=== PATIENT | male | born 1955 | race African-American/Black ===

== ENCOUNTER 2017-12-11 09:05 | Observation (INO) | payer OTHER ==
[2017-12-11] MEDS ORDERED: Ondansetron ODT 4 MG TAB SL PRN (11:30)
[2017-12-11] MEDS ORDERED: Ondansetron HCl/PF 4 MG/2 ML Vial IVP PRN (11:30)
[2017-12-11 11:44] VITALS: BMI 34.9
[2017-12-11] MEDS ORDERED: Acetaminophen 325 MG TAB PO PRN (12:32)
[2017-12-11] MEDS ORDERED: Zolpidem Tartrate 5 MG TAB PO PRN (12:32)
[2017-12-11] MEDS ORDERED: Ondansetron ODT 4 MG TAB PO PRN (12:32)
--- NOTE | 2017-12-11 13:05 | HP ---
[facility] call admission for [facility]. The patient is from [place]. Referred to the [facility] Hospitalist Cordelia carolina by [facility] for stroke. HISTORY OF PRESENT ILLNESS: Patient describes spinning and balance problems since 3:00 a.m., stated he had some double vision with it. No headache. No trouble talking. No trouble swallowing. No pro blem with arms or legs. PAST MEDICAL HISTORY: Coronary artery disease, hypertension, elevated cholesterol, anxiety. CURRENT MEDICATIONS: Prozac 10 mg a day, amlodipine 10 mg a day, fenofibric acid 135 mg a day, metop rolol 12.5 mg twice a day, KCl 10 mEq a day, Lasix 20 mg a day, lisinopril 40 mg a day. ALLERGIES TO MEDICINES: None. PAST SURGICAL HISTORY: ORIF of left femur with a james from his hip to his knee, coronary artery bypas s graft 3 years ago. FAMILY HISTORY: Father of an PA. Mother has coronary artery disease and hypertension. He has had one sibling that had a stroke. SOCIAL HISTORY: , smokes 1 pack a day. No alcohol of note. CODE STATUS: FULL CODE STATUS. No next of kin designated at this time. REVIEW OF SYSTEMS: General: No fever, chills or sweats. Eyes: He states he has had double vision. ENT: No ear pain or drainage. No nasal bleeding. No trouble swallowing. Cardiac: No chest pain, orthopnea or paroxysmal nocturnal dyspnea. Respirations: Dry cough, chroni c. No asthma or wheezing. Gastrointestinal: No nausea, vomiting, diarrhea, constipation or abdomin al pain. Genitourinary: No hematuria, dysuria. Musculoskeletal: Occasional swelling in his legs. No pain in his muscles or joints. Neurological: No history of strokes. Psychiatric: He has anxiety problems. Skin: No bruises, bleeding or rash. Heme/Lymph: No tender or swollen lymph nodes in axilla, inguinal or cervical area. PHYSICAL EXAMINATION: GENERAL: He is alert, oriented, cooperative gentleman in no acute distress. It is pertinent that du ring the neurological exam, he just spontaneously started crying and covered his eyes. VITAL SIGNS: Blood pressure 154/85, O2 sat 94, respirations 18, pulse was 50-56, temperature 97.4. HEENT: Reveal pupils equal, round, and reactive. His right eye would not cross the midline, moving to the left. His left eye had full range of motion. It is interesting to note that on far lateral v ision with the disconjugate motion, he did not have double vision counting fingers. Sclerae white. Tympanic membranes clear. Nose clear. Oral mucous membranes are wet. Dental hygiene is good. NECK: Supple, without jugular venous distention, adenopathy or thyromegaly. CHEST: Clear to auscultation and percussion. HEART: Had a regular rate and rhythm. First and second heart sounds are clear. There are no apprec iated murmurs or gallops. ABDOMEN: Soft, bowel sounds are normal. There is no hepatosplenomegaly, no mass, no rebound examine . EXTREMITIES: Examination of his extremities reveal no cyanosis, clubbing or edema. PULSES: Carotid, radial, and femoral pulses intact. Pedal pulses diminished diffusely. SKIN: Warm and dry without bruises or rash. HEME/LYMPH: No tender or swollen lymph nodes in axilla, inguinal or cervical area. No petechial hem orrhages. NEUROLOGICAL: Examination of his cranial nerves were normal except for an apparent paralysis of the medial rectus on the right. Deep tendon reflexes were symmetric. Strength was symmetric. Finger-no se-finger was symmetric. IMAGING: EKG, sinus bradycardia, otherwise normal, reviewed by me. Studies done in [place] [facility], brain CT, no acute intracranial abnormality noted. CT [place] [facility] [place] with contrast revealed no hi gh-grade stenosis. LABORATORY DATA: CBC is normal. Basic metabolic profile is normal except for a glucose of 119. Car diac enzymes are normal. Urine is clear. Urine drug screen is clear. ADMITTING DIAGNOSES: 1. Dizziness consistent with vertigo, no nystagmus on my exam. 2. Paralysis of right medial rectus. 3. Coronary artery disease, post coronary artery bypass graft. 4. Hypertension. 5. Dyslipidemia. 6. Anxiety. PLAN: Continue aspirin. We will start statin. MRI, carotid ultrasound, then reevaluate.
--- NOTE | 2017-12-11 14:10 | ULT ---
BILATERAL CAROTID DUPLEX ULTRASOUND: HISTORY: Dizziness. TECHNIQUE: Roldan scale, color flow, and spectral Doppler imaging of the external carotid artery systems is perfor med bilaterally. FINDINGS: No significant plaque formation or intimal wall thickening is seen. The peak systolic velocity in the right ICA measures 56 cm/s with an end-diastolic velocity of 11 cm/ s and a systolic pressure of 0.48. The peak systolic velocity in the left ICA measures 84 cm/s with an end-diastolic velocity of 9 cm/s and a systolic ratio of 0.76. Flow in both arteries remains antegrade. IMPRESSION: No evidence of hemodynamically significant stenosis. POS: [facility]
[2017-12-11 15:27] VITALS: BP 154/83; TEMP 97.5
--- NOTE | 2017-12-11 17:30 | MRI ---
MRI OF BRAIN WITHOUT CONTRAST: 12/11/17 HISTORY: Double vision, dizziness, altered mental status. Right eye strabismus. FINDINGS: No restricted diffusion is seen. There are foci of T2 prolongation in the periventricular white matte r consistent with chronic small vessel ischemic disease. There is gliosis in the left temporal lobe. No evidence of acute infarct, hemorrhage, midline shift, or abnormal extra-axial fluid collections ar e seen. No evidence of acute infarct, hemorrhage, midline shift, or abnormal extra-axial fluid collec tions seen. The ventricular size is appropriate and the basilar cisterns patent. There is mucosal dis ease in the paranasal sinuses. IMPRESSION: No evidence of acute intracranial process. POS: [facility]
--- NOTE | 2017-12-11 18:38 | DIS ---
DATE OF ADMISSION: 12/11/2017. DATE OF DISCHARGE: 12/11/2017. TRANSFER OF CARE PRIMARY CARE PROVIDER: Out of town in [place]. DISCHARGE DISPOSITION: Home. FINAL DIAGNOSES: Dizziness, most compatible with vertigo; history of coronary artery disease; hypert ension and dyslipidemia. DISCHARGE MEDICATIONS: The same as his home medicines, metoprolol 12.5 mg daily, lisinopril 40 mg da emely, aspirin 81 mg, Lasix 20 mg daily, amlodipine 10 mg daily, KCl 10 mEq daily, fenofibric acid 135 mg daily, fluoxetine 10 mg a day plus meclizine 12.5 mg p.o. q.6 hours p.r.n. dizziness. ALLERGIES: None. PENDING AT THE TIME OF DISCHARGE: Nothing. CODE STATUS: Full. HOSPITAL COURSE: The patient admitted from [place] with vertigo sensation, question of double v ision. CT scan was unremarkable. Brain MRI showed no evidence of acute process. Carotid Doppler sh owed no stenosis. Situation was discussed with the patient. His symptoms have resolved. He is madonna zuleyma of being discharged on medicines for dizziness plus his home medicines. He has been asked to se e his PCP for followup in 1 week. His other laboratory was done in [place]. CBC was normal. B asic metabolic profile was normal. Urine was clear. Toxicology was negative. At the time of discha rge, blood pressure 154/83, pulse 55, respirations 16, pulse ox 94, feels well. Cardiorespiratory ex am is normal. Neurological exam shows the same fixed defect of his right medial rectus ophthalmic mu scle as before. It is fascinating to note that as before he notes no double vision with his left vis ion despite the fact that his eyes were not tracking together, which indicates this is an old compens ated problem.
[2017-12-12] MEDS ORDERED: FLUoxetine HCl 10 MG CAP PO SCH (09:00)
[2017-12-12] MEDS ORDERED: Fenofibrate Nanocrystallized 145 MG TAB PO SCH (09:00)
[2017-12-12] MEDS ORDERED: Lisinopril 20 MG TAB PO SCH (09:00)
[2017-12-12] MEDS ORDERED: Metoprolol Tartrate 25 MG TAB PO SCH (09:00)
[2017-12-12] MEDS ORDERED: Aspirin 325 mg Enteric Coated Tablet PO SCH (09:00)
[2017-12-12] MEDS ORDERED: Amlodipine 10 MG TAB PO SCH (09:00)
[2017-12-12] MEDS ORDERED: Furosemide 20 MG TAB PO SCH (09:00)
[2017-12-12] MEDS ORDERED: Potassium Chloride 10 MEQ TAB PO SCH (09:00)
== END 2017-12-11 18:32 | disposition home or self-care (01) ==
LOC: ERS 09:05 → INTOOBSV 10:00 → 2SE 10:00
PROVIDERS: ADMIT Internal Medicine; ATTEND Internal Medicine
DX: R42 Dizziness and giddiness (principal); H53.2 Diplopia; I25.10 Atherosclerotic heart disease of native coronary artery without angina pectoris; I10 Essential (primary) hypertension; E78.00 Pure hypercholesterolemia, unspecified; F17.210 Nicotine dependence, cigarettes, uncomplicated; E78.5 Hyperlipidemia, unspecified; H49.9 Unspecified paralytic strabismus; F41.9 Anxiety disorder, unspecified; Z79.82 Long term (current) use of aspirin; Z79.899 Other long term (current) drug therapy; Z95.1 Presence of aortocoronary bypass graft
CPT/HCPCS: 70551; 93880; 99285; G8978-GP-CJ; G8979-GP-CJ; G8980-GP-CJ; G8996-GN-CH; G8997-GN-CH; G8998-GN-CH; Q0162